=== PATIENT | male | born 1985 | race African-American/Black ===

== ENCOUNTER 2023-09-01 09:21 | Outpatient (AMB) | payer OTHER, SELFPAY ==
--- NOTE | 2023-09-01 10:51 | MHC.OFFWIV ---
Intake Vital Signs 09/01/23 11:00 Height 5 ft 6 in Weight 177 lb 6 oz BMI 28.6 BP 110/64 Blood Pressure Location Lt brachial Position Sitting Pulse 98 Pulse Source Pulse Oximeter Temp 97.8 F Temp Source Temporal Artery Scan Pulse Oximetry (%) 99 Oxygen Delivery Method Room Air Intake Visit Reasons: [employer] Fever, Cough, [id number] Intake Note: Pt is here c/o fever, bad cough and body aches for the past 5 days. Patient Tobacco Use Status: Never used Tobacco Allergies No Known Allergies Allergy (Verified 09/01/23 10:55) Do you need a note to return to daycare/school/sports/work: No HPI [employer] Fever, Cough, [id number] HPI Details This is a 37-year-old male patient who presents today with a 5 to 6 day history of upper respiratory symptoms. He reports nasal and ear pressure, productive cough with green sputum, muscle aches. He reports fever on Monday and Monday, however no fever since then. Denies any GI symptoms. Denies any shortness of breath. Has been using NyQuil, Debbie-Scobey, increasing water intake. His mother also has similar symptoms. Has not done any at home assisting [facility] Social History Patient Tobacco Use Status: Never used Tobacco Review of Systems Const All systems reviewed & are unremarkable except as noted in HPI and below Physical Exam Vital Signs: Last Vital Signs Temp 97.8 F 09/01/23 11:00 Pulse 98 09/01/23 11:00 BP 110/64 09/01/23 11:00 Pulse Ox 99 09/01/23 11:00 Oxygen Delivery Method Room Air 09/01/23 11:00 BMI result Body Mass Index 28.6 Const General: cooperative and no acute distress HEENT Head: Yes normal to inspection Ears: hearing grossly normal bilaterally, external ears normal and unable to visualize TM (cerumen) General nose exam: Normal external nose present and Nasal discharge present mucoid Face and sinus: Yes normal facial exam Mouth: Normal oral and palatal mucosa present and moist mucous membranes Throat: Yes posterior oropharynx normal Neck Neck: Yes no lymphadenopathy Resp Effort & Inspection: normal respiratory effort and able to speak in complete sentences Auscultation: clear to auscultation bilaterally Cardio Palpation: normal PMI Rate: regular rate Rhythm: regular rhythm Skin General skin exam: no rashes or lesions noted Extrem General: Yes capillary refill normal and Yes no clubbing, cyanosis or edema Psych Appearance: grossly normal Mental Status: mental status grossly normal Speech and movement: Normal speech and movement present Assessment & Plan Assessment & Plan (1) Upper respiratory infection: Code(s): J06.9 - Acute upper respiratory infection, unspecified Qualifiers: URI type: unspecified viral URI Qualified Code(s): J06.9 - Acute upper respiratory infection, unspecified Plan: Symptoms are consistent with viral illness. Covid/Flu/RSV swab obtained. Advised ongoing rest, hydration, otc cold/flu products as needed for symptomatic treatment. I will prescribe him a nasal spray and also benzonatate for his cough. Reviewed indications, use, possible s/e of this. He will be contacted with results once these are available. He verbalizes understanding and agrees to plan. Orders: Orders SARS-CoV2/FLU/RSV Today J06.9 - Acute upper respiratory infection, unspecified Medications: New benzonatate 100 mg PO BID PRN 14 caps 0RF cough 7 days R05.9 - Cough, unspecified fluticasone propionate 50 mcg/actuation (Allergy Relief (fluticasone)) administer into each nostril 1 spray intranasal BID 16 grams 0RF J06.9 - Acute upper respiratory infection, unspecified Coding Level of Care Code Est Pt Level 3 (86042) Diagnoses Viral upper respiratory tract infection J06.9 URI type: unspecified viral URI
[2023-09-01 11:00] VITALS: BP 110/64; PULSE 98; TEMP 36.6; O2SAT 99; BMI 28.6
== END 2023-09-01 11:25 | disposition home or self-care (01) ==
PROVIDERS: Visit Provider Nurse Practitioner Family
DX: J06.9 Acute upper respiratory infection, unspecified (principal)
CPT/HCPCS: 99213

== ENCOUNTER 2023-09-01 11:12 | Outpatient (REF) | payer OTHER, SELFPAY | END 2023-09-01 11:13 | disposition home or self-care (01) | LOC: HO.LAB 11:12 | PROVIDERS: Visit Provider Nurse Practitioner Family | DX: J06.9 Acute upper respiratory infection, unspecified (principal); Z11.52 Encounter for screening for COVID-19 | CPT/HCPCS: 0241U ==